=== PATIENT | female | born 1970 | race Asian ===

== ENCOUNTER 2019-10-05 06:30 | Day surgery (SDC) | payer BC ==
[~2019-10-05] VITALS: Ht 149.9 cm; Wt 36.0 kg
[2019-10-05 07:02] VITALS: BP 140/92; PULSE 91; TEMP 98
--- NOTE | 2019-10-05 07:10 | NUR ---
TO RM AT 0640- CALL LIGHT IN REACH AT BEDSIDE.
[2019-10-05 08:25] VITALS: BP 99/73; PULSE 70; TEMP 97.7
--- NOTE | 2019-10-05 08:25 | NUR ---
Patient arrives to [facility] via cart, accompanied by [facility] RN [place]. Bedside report is received. Patient is drowsy, but oriented. She ambulates to chair in room. Monitoring is applied - VSS and WNL on room air. She denies pain or nausea. She is offered and receives water and crackers. Provided warm blankets for comfort. Her spouse is at the bedside and spoke with Dr. Nelson post-procedure. The call light is within reach. Will continue to monitor.
[2019-10-05 08:40] VITALS: BP 116/73; PULSE 66
--- NOTE | 2019-10-05 08:40 | NUR ---
VSS and WNL on room air. She is resting comfortably in her room. She denies any pain, nausea, or need at this time.
[2019-10-05 08:55] VITALS: BP 115/63; PULSE 68
--- NOTE | 2019-10-05 09:07 | NUR ---
Patient has met discharge criteria. Discharge instructions discussed, denies any questions, and verbalizes understanding. PIV removed with catheter intact and hemostasis achieved. Escorted to the exit by staff. Discharged to home with ride in private vehicle at 0907.
== END 2019-10-05 09:07 | disposition home or self-care (01) ==
LOC: SDCO 06:30
DX: Z12.11 Encounter for screening for malignant neoplasm of colon (principal); E66.01 Morbid (severe) obesity due to excess calories; D64.9 Anemia, unspecified
CPT/HCPCS: J2704; J7120

== ENCOUNTER → 2019-10-10 | Outpatient (CLI) | payer BC | LOC: MC.RAD 15:44 | DX: Z12.31 Encounter for screening mammogram for malignant neoplasm of breast (principal) ==

== ENCOUNTER → 2020-10-11 | Outpatient (CLI) | payer BC | LOC: MC.RAD 07:00 | DX: Z12.31 Encounter for screening mammogram for malignant neoplasm of breast (principal); N64.89 Other specified disorders of breast ==

== ENCOUNTER → 2020-10-17 | Outpatient (CLI) | payer BC | LOC: MC.RAD 07:44 | DX: N63.11 Unspecified lump in the right breast, upper outer quadrant (principal) ==

== ENCOUNTER → 2020-10-30 | Outpatient (CLI) | payer BC | LOC: MC.RAD 07:00 | DX: N60.01 Solitary cyst of right breast (principal) ==